=== PATIENT | male | born 1950 | race Caucasian/White ===

== ENCOUNTER 2017-12-06 09:00 | Inpatient (IN) | payer OTHER ==
--- NOTE | 2017-12-06 09:10 | EDPHY ---
H & P Stated Complaint: Pt states poss TIA yesterday; had blurry vision R, numb L leg; sxs resolved Time Seen by Provider: 12/06/17 09:10 - Personal History Current Tetanus Diphtheria and Acellular Pertussis (TDAP): Yes - Medical/Surgical History Other PMH: HTN - Social History Smoking Status: Never smoked Constitutional: Initial Vital Signs Temperature (C) 36.4 C 12/06/17 09:00 Heart Rate 69 12/06/17 09:00 Respiratory Rate 18 12/06/17 09:00 Blood Pressure 153/80 H 12/06/17 09:00 O2 Sat (%) 97 12/06/17 09:00 O2 Delivery Mode Room Air Allergies/Adverse Reactions: No Known Allergies Allergy (Unverified 12/06/17 09:07) Home Medications: Medication Instructions Recorded Albuterol [Proventil Inhaler HFA 1 - 2 puffs IH DAILY PRN 12/06/17 (*)] Herbals/Supplements -Info Only 1 ea PO DAILY 12/06/17 Hydrocortisone 1% [Hydrocortisone 1 hoda TP DAILY PRN 12/06/17 1% cream (*)] Lisinopril [Zestril 10 mg (*)] 10 mg PO 12/06/17 Medical Decision Making - Diagnostics Imaging Results: Imaging Impressions Head CT 12/06/17 09:25 Impression: 1. No significant intracranial abnormality seen. Subsequent CT angiogram was performed as requested. Findings discussed with Americo Garcia MD at 11:10 hour, 12/06/2017. Head CTA 12/06/17 09:25 Impression: 1. Mild to moderate narrowing at the right carotid bulb secondary to partially calcified plaque in the order of 50-60%. 2. Minimal noncalcified plaque at the left carotid bulb without significant stenosis. 3. Normal CT angiogram of the [place] band of [place], with normal variation as detailed above. Note: All calculations were performed using NASCET criteria. Findings discussed with Americo Garcia MD at 11:18 hour, 12/06/2017. Neck CTA 12/06/17 09:25 Impression: 1. Mild to moderate narrowing at the right carotid bulb secondary to partially calcified plaque in the order of 50-60%. 2. Minimal noncalcified plaque at the left carotid bulb without significant stenosis. 3. Normal CT angiogram of the [place] band of [place], with normal variation as detailed above. Note: All calculations were performed using NASCET criteria. Findings discussed with Americo Garcia MD at 11:18 hour, 12/06/2017. Imaging: Discussed imaging studies w/ call box wirer Radiologist, I viewed and interpreted images myself ED Course/Re-evaluation: CHIEF COMPLAINT: Left leg weakness, right eye blurriness HISTORY OF PRESENT ILLNESS: The patient is a 67 y/o male with a history of hypertension complaining of left leg weakness and right eye blurriness onset at 20:00, 13 hours ago, while lying in bed. Last night his left leg felt discoordinated, but the weakness and coordination has improved. The blurriness in his right eye has also improved, but he does have an intermittent semi-bad river band obstructing his vision. Takes Lisinopril, but didn't take for 1 week recently. No upper extremity weakness, difficulty with speech, headache, shortness of breath, chest pain, abdominal pain. REVIEW OF SYSTEMS: A 10 point review of systems was performed and is negative with the exception of the elements mentioned in the history of present illness. PHYSICAL EXAM: HR, BP, O2 Sat, RR. Temp noted General Appearance: Alert, well hydrated, appropriate, and non-toxic appearing. Head: Atraumatic without scalp tenderness or obvious injury Eyes: Pupils equal, round, reactive to light and accommodation, EOMI, no trauma , no injection. Ears: Clear bilaterally, no perforation, normal landmarks Nose: Atraumatic, no rhinorrhea, clear. Throat: Mucus membranes moist. Neck: Supple, nontender, no lymphadenopathy. Respiratory: No retractions, no distress, no wheezes, and no accessory muscle use. Lungs are clear to auscultation bilaterally. Cardiovascular: Regular rate and rhythm, no murmurs, rubs, or gallops. Good capillary refill all extremities. Gastrointestinal: Abdomen is soft, nontender, non-distended, no masses, no rebound, no guarding, no peritoneal signs. Musculoskeletal: Normal active ROM of all extremities, atraumatic. Neurological: Alert, appropriate, and interactive. The patient has normal DTRs and non-focal cranial nerves, motor, sensory, and cerebellar exam. Skin: No rashes, good turgor, no nodules on palpation. Past medical history: Hypertension Past surgical history: Denies Family history: Denies Social history: at bedside, lives in [place], employed at DIAGNOSTICS/PROCEDURES/CRITICAL CARE TIME: The 12 lead EKG was interpreted by myself as sinus rhythm with a rate of 71. See hard copy and/or "tracemaster" electronic copy for interpretation. Head CT w/o contrast: Negative Head and Neck CTA: 50-60% right carotid bulb stenosis Brain MRI w/o contrast: 1cm infarct of the right frontal lobe in the precentral gyrus Critical care time spent by me, Dr. Garcia, exclusively with this patient was 30 minutes, exclusive of PA time and exclusive of procedures. The organ system at risk was the brain and I had multiple imaging studies and admitted the patient for CVA observation to prevent worsening of the patients condition. DIFFERENTIAL DIAGNOSIS: The differential diagnosis for the patient's neurologic deficits included but was not limited to peripheral causes, central causes including CVA, TIA, electrolyte abnormalities and dehydration, cardiogenic causes, atypical causes like migraine syndrome. MEDICAL DECISION MAKING: The patient is a 67 y/o male with a history of hypertension complaining of left leg weakness and right eye blurriness onset at 20:00, 13 hours ago. His symptoms have since improved and he has a normal neuro exam. His NIH Stroke scale is 0. EKG, head CT w/o contrast, head and neck CTA, and labs ordered. 10mg IV Labetalol administered. 0947: The 12 lead EKG was interpreted by myself as sinus rhythm with a rate of 71. 0959: Patient was not given Labetalol as his blood pressure decreased to 148/23 without intervention. 1004: Patient's labs are normal and do not reveal signs of a stroke. 1110: Spoke with Dr. Romero, radiologist, patient's head CT w/o contrast is normal. CTA's pending. 1116: Spoke with Dr. Romero, radiologist, CTA's reveal 50-60% right carotid bulb stenosis. 1135: I viewed this patient while he was walking to the bathroom. He is currently walking with a limp of his left leg. 1137: Patient will need to be admitted for a CVA work up. He is out of the TPA window and does not meet criteria for large vessel intervention. Had he arrived last night in the TPA window, I would have used TPA as he would have been a candidate based on his symptoms and imaging findings. Brain MRI w/o contrast ordered. 80mg Lovenox administered. 1138: Consulted with hospitalist service, Dr. Tran accepts admission of this patient. 1144: Reassessed patient and discussed CTA and laboratory findings. I have also discussed plan for Brain MRI and admission, he is comfortable with this plan. 1233: Consulted with Dr. Carrero, regarding this patient. He will consult on this patient during his stay. 1239: Spoke with Dr. Pereyra, radiologist, regarding patient's brain MRI. There is a 1cm infarct of the right frontal lobe in the precentral gyrus. 1241: Reassessed patient and discussed MRI findings. - Data Points Laboratory Results: Laboratory Results 12/06/17 09:34 12/06/17 09:34 12/06/17 12/06/17 12/06/17 09:34 09:34 09:34 WBC 4.83 10^3/uL 10^3/uL (3.80-9.50) RBC 5.41 10^6/uL 10^6/uL (4.40-6.38) Hgb 17.3 g/dL g/dL (13.7-17.5) Hct 49.6 % % (40.0-51.0) MCV 91.7 fL fL (81.5-99.8) MCH 32.0 pg pg (27.9-34.1) MCHC 34.9 g/dL g/dL (32.4-36.7) RDW 13.0 % % (11.5-15.2) Plt Count 214 10^3/uL 10^3/uL (150-400) MPV 9.1 fL fL (8.7-11.7) Neut % (Auto) 69.2 % % (39.3-74.2) Lymph % (Auto) 18.4 % % (15.0-45.0) [place] % (Auto) 10.4 % % (4.5-13.0) Eos % (Auto) 1.2 % % (0.6-7.6) Baso % (Auto) 0.4 % % (0.3-1.7) Nucleat RBC Rel Count 0.0 % % (0.0-0.2) Absolute Neuts (auto) 3.34 10^3/uL 10^3/uL (1.70-6.50) Absolute Lymphs (auto) 0.89 10^3/uL L 10^3/uL (1.00-3.00) Absolute Monos (auto) 0.50 10^3/uL 10^3/uL (0.30-0.80) Absolute Eos (auto) 0.06 10^3/uL 10^3/uL (0.03-0.40) Absolute Basos (auto) 0.02 10^3/uL 10^3/uL (0.02-0.10) Absolute Nucleated RBC 0.00 10^3/uL 10^3/uL (0-0.01) Immature Gran % 0.4 % % (0.0-1.1) Immature Gran # 0.02 10^3/uL 10^3/uL (0.00-0.10) PT 13.7 SEC SEC (12.0-15.0) INR 1.03 (0.83-1.16) APTT 28.7 SEC SEC (23.0-38.0) Sodium 141 mEq/L mEq/L (135-145) Potassium 4.6 mEq/L mEq/L (3.5-5.2) Chloride 103 mEq/L mEq/L (97-110) Carbon Dioxide 26 mEq/l mEq/l (22-31) Anion Gap 12 mEq/L mEq/L (8-16) BUN 18 mg/dL mg/dL (7-23) Creatinine 1.1 mg/dL mg/dL (0.7-1.3) Estimated GFR > 60 Glucose 105 mg/dL H mg/dL (70-100) Calcium 8.9 mg/dL mg/dL (8.5-10.4) Troponin I < 0.012 ng/mL ng/mL (0.000-0.034) Departure - Departure Disposition: [facility] Inpatient Acute Clinical Impression: CVA (cerebral vascular accident) Qualifiers: CVA mechanism: stenosis Precerebral and cerebral artery: carotid artery Laterality of affected vessel: right Qualified Code(s): I63.231 - Cerebral infarction due to unspecified occlusion or stenosis of right carotid arteries Condition: Fair Referrals: Joann Arreaga MD [Primary Care Provider] - As per Instructions Report Scribed for: Americo Garcia Report Scribed by: Nuzhat Dempsey Date of Report: 12/06/17 Time of Report: 09:15
[2017-12-06] MEDS ORDERED: LABETALOL HCL 5 MG/ML 20 ML MDV IVP PRN (09:21)
[2017-12-06 09:38] LABS: PLATELET COUNT 214 10^3/uL (150-400)
[2017-12-06 09:45] LABS: INR 1.03 (0.83-1.16); PROTIME(PATIENT) 13.7 SEC (12.0-15.0)
--- NOTE | 2017-12-06 09:49 | CPEKG ---
Heart Rate: 71 RR Interval: 845 P-R Interval: 196 QRSD Interval: 90 QT Interval: 380 QTC Interval: 413 P [place]: 78 QRS [place]: 78 T Wave [place]: 47 EKG Severity - NORMAL ECG - EKG Impression: SINUS RHYTHM Electronically Signed By: Americo Garcia 06-Dec-2017 14:17:08
[2017-12-06] MEDS ORDERED: IOPAMIDOL (ISOVUE 370) 100 ML BTL IV ONE (10:04)
[2017-12-06] MEDS ORDERED: ENOXAPARIN 80 MG/0.8 ML SYR SC ONE ×2 (11:37→13:30)
[2017-12-06] MEDS ORDERED: ONDANSETRON DISINTEGRATING 4 MG TAB PO PRN (13:41)
[2017-12-06] MEDS ORDERED: ONDANSETRON 4 MG/2 ML VIAL IVP PRN (13:41)
[2017-12-06] MEDS ORDERED: ACETAMINOPHEN 325 MG TAB PO PRN (13:41)
[2017-12-06] MEDS ORDERED: ALBUTEROL 60 PUFFS/8 GM MDI IH PRN (13:45)
[2017-12-06] MEDS ORDERED: HYDROCORTISONE 1% CREAM TP PRN (13:45)
[2017-12-06] MEDS ORDERED: D5W 1/2 NS 1,000 ML IV SCH (13:45)
--- NOTE | 2017-12-06 14:48 | PDGENHP ---
History and Physical - Chief Complaint Acute paresis - History of Present Illness Primary care provider: Dr. Arreaga Primary dynamicist: Dr. Guzman HPI: 67-year-old male presenting with acute paresis located in the left lower extremity with associated blurred vision characterized as right ocular blurred visual field with semi circular visual crescent with onset of ocular symptoms on the afternoon of December 05 and the onset of lower extremity symptoms at 8: 00 p.m. On December 05. Duration of the paresis was persistent overnight and the patient noted that it was ongoing on the morning of this presentation. He characterizes the paresis as impaired proprioception, resulting in difficulty ambulating. He reports that he also experienced some concomitant dizziness exacerbated by standing. He reports that he has experienced this semi circular crescent visual field abnormality several times over the past year, and has noted for several years, without any workup in the past. It is never been associated with any other neurologic symptoms. He reports that is exacerbated with IV movements. He otherwise denies any infectious symptoms. He reports that he stopped taking his home dosage of lisinopril approximately 1 week ago after running out of his medication, and does not take any anti-platelet medications. History Information - Allergies/Home Medication List Allergies/Adverse Reactions: No Known Allergies Allergy (Unverified 12/06/17 09:07) Home Medications: Albuterol [Proventil Inhaler HFA (*)] 1 - 2 puffs IH DAILY PRN 12/06/17 [Last Taken Unknown] Herbals/Supplements -Info Only 1 ea PO DAILY 12/06/17 [Last Taken Unknown] Hydrocortisone 1% [Hydrocortisone 1% cream (*)] 1 hoda TP DAILY PRN 12/06/17 [ Last Taken Unknown] Lisinopril [Zestril 10 mg (*)] 15 mg PO DAILY 12/06/17 [Last Taken Unknown] I have personally reviewed and updated: family history, medical history, social history, surgical history - Past Medical History Additional medical history: Lumbar disc herniation. Nephrolithiasis - Surgical History Additional surgical history: C3-C4 fusion - Family History Additional family history: Mother with TIAs around age 100 - Social History Smoking Status: Never smoked Alcohol Use: Occasionally (Drinks 1 glass of wine nightly) Drug Use: None Additional social history: Physically active, exercises cardiovascularly several times weekly, has not noted any recent anginal symptoms or reduction in exercise tolerance Review of Systems Review of Systems: ROS: 10pt was reviewed & negative except for what was stated in HPI & below EENMT: Reports: blurred vision Neurological: Reports: weakness (Left lower extremity) Physical Exam Physical Exam: Temp Pulse Resp BP Pulse Ox 37.0 C 77 21 H 138/80 H 93 12/06/17 14:00 12/06/17 14:00 12/06/17 14:00 12/06/17 14:00 12/06/17 14:00 Constitutional: no apparent distress, appears nourished, not in pain Eyes: PERRL, anicteric sclera, EOMI Ears, Nose, Mouth, Throat: moist mucous membranes, hearing normal, ears appear normal, no oral mucosal ulcers Cardiovascular: regular rate and rhythym, no murmur, rub, or gallop, No edema Respiratory: no respiratory distress, no rales or rhonchi, clear to auscultation Gastrointestinal: normoactive bowel sounds, soft, non-tender abdomen, no palpable masses Skin: warm, No abrasion, No rash Neurologic: AAOx3, sensation intact bilaterally, other (Bilateral patellar reflexes 2+, left heel to stuart demonstrating some proprioceptive abnormality), No weakness (Motor strength 5/5 bilateral upper and lower extremities) Psychiatric: interacting appropriately, not anxious, not encephalopathic, thought process linear Lab Data & Imaging Review 12/06/17 09:34 12/06/17 09:34 WBC 4.83 10^3/uL (3.80-9.50) 12/06/17 09:34 RBC 5.41 10^6/uL (4.40-6.38) 12/06/17 09:34 Hgb 17.3 g/dL (13.7-17.5) 12/06/17 09:34 Hct 49.6 % (40.0-51.0) 12/06/17 09:34 MCV 91.7 fL (81.5-99.8) 12/06/17 09:34 MCH 32.0 pg (27.9-34.1) 12/06/17 09:34 MCHC 34.9 g/dL (32.4-36.7) 12/06/17 09:34 RDW 13.0 % (11.5-15.2) 12/06/17 09:34 Plt Count 214 10^3/uL (150-400) 12/06/17 09:34 MPV 9.1 fL (8.7-11.7) 12/06/17 09:34 Neut % (Auto) 69.2 % (39.3-74.2) 12/06/17 09:34 Lymph % (Auto) 18.4 % (15.0-45.0) 12/06/17 09:34 [place] % (Auto) 10.4 % (4.5-13.0) 12/06/17 09:34 Eos % (Auto) 1.2 % (0.6-7.6) 12/06/17 09:34 Baso % (Auto) 0.4 % (0.3-1.7) 12/06/17 09:34 Nucleat RBC Rel Count 0.0 % (0.0-0.2) 12/06/17 09:34 Absolute Neuts (auto) 3.34 10^3/uL (1.70-6.50) 12/06/17 09:34 Absolute Lymphs (auto) 0.89 10^3/uL (1.00-3.00) L 12/06/17 09:34 Absolute Monos (auto) 0.50 10^3/uL (0.30-0.80) 12/06/17 09:34 Absolute Eos (auto) 0.06 10^3/uL (0.03-0.40) 12/06/17 09:34 Absolute Basos (auto) 0.02 10^3/uL (0.02-0.10) 12/06/17 09:34 Absolute Nucleated RBC 0.00 10^3/uL (0-0.01) 12/06/17 09:34 Immature Gran % 0.4 % (0.0-1.1) 12/06/17 09:34 Immature Gran # 0.02 10^3/uL (0.00-0.10) 12/06/17 09:34 PT 13.7 SEC (12.0-15.0) 12/06/17 09:34 INR 1.03 (0.83-1.16) 12/06/17:34 APTT 28.7 SEC (23.0-38.0) 12/06/17 09:34 Sodium 141 mEq/L (135-145) 12/06/17 09:34 Potassium 4.6 mEq/L (3.5-5.2) 12/06/17 09:34 Chloride 103 mEq/L (97-110) 12/06/17 09:34 Carbon Dioxide 26 mEq/l (22-31) 12/06/17 09:34 Anion Gap 12 mEq/L (8-16) 12/06/17 09:34 BUN 18 mg/dL (7-23) 12/06/17 09:34 Creatinine 1.1 mg/dL (0.7-1.3) 12/06/17 09:34 Estimated GFR > 60 12/06/17 09:34 Glucose 105 mg/dL (70-100) H 12/06/17 09:34 Calcium 8.9 mg/dL (8.5-10.4) 12/06/17 09:34 Troponin I < 0.012 ng/mL (0.000-0.034) 12/06/17 09:34 Visualized and Interpreted EKG results: Yes EKG Interpretation: Positive for: other (Normal sinus mechanism) Assessment & Plan Assessment: 67-year-old male presents with acute CVA Plan: 1. CVA. Acute, new problem this provider, further workup indicated. Right frontal, 1 cm without any hemorrhage on MRI, possibly associated with right- sided 50-60% stenosis in the carotid bulb, and resultant left lower extremity proprioceptive symptoms -check hemoglobin A1c -monitor on telemetry for provoking arrhythmia -get echocardiogram with bubble study -the patient has received therapeutic Lovenox in the emergency department, will hold on further anticoagulation and consult with Neurology to determine whether anti-platelet medication would be indicated over systemic anticoagulation -reviewed outside records including 12/01/[address] Arreaga demonstrating an LDL of 118, goal is currently 70 -counseled the patient that the use of statin in this situation will both lower his LDL as well as improve his 30 day mortality risk the patient is amenable to initiating statin at this time -stroke order set and therapy modalities ordered 2. Carotid stenosis. New diagnosis, right-sided with 50-60% stenosis at the bulb, minimal disease on the left, patient's degree of stenosis is yet to be at the level of surgical intervention but will require regular outpatient monitoring Diet. Passed swallow eval, cardiac Prophylaxis. High risk patient, SCDs until seen by neurology Code. Full Disposition. Anticipated discharge is 12/06 versus 12/07, pending further workup as outlined above. I have discussed patient's presentation with Susan Snyder, hospitalist provider, she has signed out the patient to me for evaluation.
--- NOTE | 2017-12-06 14:55 | ECHO ---
[email or web address] [address] [address] Main: [phone] Fax: Transthoracic Echocardiogram Name: ELMA GUERRERO MR#: [id number] Study Date: 12/06/2017 Study Time: 02:09 PM Date of : 1950 Age: 67 year(s) Height: 175.3 cm (69 in.) Weight: 74.84 kg (165 lb.) BSA: 1.9 m2 Gender: Male Examination: Echo with Agitated Saline Indication: Ischemic Stroke, Bubble exam Image Quality: Contrast: Requested by: Ronaldo Tran BP: 138 mmHg/80 mmHg Heart Rate: Rhythm: Normal sinus rhythm Indication: Ischemic Stroke, Bubble exam Procedure Staff Director Pharmacovigilance: Jerry Hand RDCS Reading Physician: Nicholas Salguero MD Requesting Provider: Conclusions: Normal size left ventricle. Normal global systolic LV function. EF is 68 %. The left atrium is normal in size. An agitated saline study was performed and was negative for intracardiac shunting. The right atrium is normal in size. Measurements: Chambers Valvular Assessment AV/MV Valvular Assessment TV/PV Normal Normal Normal Name Value Range Name Value Range Name Value Range Ao Karolyn (MM): 2.6 cm (2.2 cm-3.7 AV Vmax: 1.24 m/s (1 m/s-1.7 cm) m/s) IVSd (2D): 1.0 cm (0.6 cm-1.1 AV maxP mmHg ( - ) cm) LVOT Vmax: 0.65 m/s (0.7 m/s-1.1 LVDd (2D): 4.2 cm (4.2 cm-5.9 m/s) cm) MV E Vmax: 0.61 m/s ( - ) LVDs (2D): 2.6 cm (2.1 cm-4 MV A Vmax: 0.50 m/s ( - ) cm) MV E/A: 1.22 ( - ) LVPWd (2D): 1.0 cm (0.6 cm-1 cm) LVEF (2D): 68 (>=54 %) Continued Measurements: Valvular Assessment AV/MV Name Value MV E' Septal: 0.08 m/s MV E/E' Septal: 7.80 MV E/E' Lateral: 7.00 Patient: ELMA GUERRERO Study Date: 12/06/2017 Page 1 of 2 02:09 PM Findings: Left Ventricle: Normal size left ventricle. No LV hypertrophy. Normal global systolic LV function. EF is 68 %. No regional wall motion abnormality. Diastolic dysfunction is present. . Right Ventricle: Normal size right ventricle. Normal RV function. Left Atrium: The left atrium is normal in size. An agitated saline study was performed and was negative for intracardiac shunting. Right Atrium: The right atrium is normal in size. Mitral Valve: The mitral valve is normal in appearance and function. There is no mitral valve regurgitation. Aortic Valve: The aortic valve is tri-leaflet and functions normally. Tricuspid Valve: The tricuspid valve is normal in appearance and function. Pulmonic Valve: The pulmonic valve is normal in appearance and function. Aorta: The aorta is normal. Pericardium: No pericardial effusion. (No Signature Object) Patient: ELMA GUERRERO Study Date: 12/06/2017 Page 2 of 2 02:09 PM [id number]
--- NOTE | 2017-12-06 18:13 | GCON ---
[f rep st] CONSULTATION NEUROLOGY CONSULTATION DATE OF CONSULTATION: 12/06/2017 REFERRING PHYSICIAN: Ronaldo Tran MD CHIEF COMPLAINT: Stroke. HISTORY OF PRESENT ILLNESS: The patient is a very pleasant and healthy 67-year- old gentleman with a past medical history of hypertension, on lisinopril 10 mg daily. He is very active and was skiing hard for the last 2 days in [place] and [facility]. He does have some remote history of very rare migraine aura at times symptoms without headaches. Yesterday, he did have a migraine aura type symptom in the afternoon of a scintillating scotoma around 1 p.m. which resolved. Then later in the afternoon around 4 or 5 he had sudden blurriness of the right eye. Then around 8 p.m. while relaxing, he suddenly had acute onset weakness of the left leg. He essentially did not seek treatment for this and went to bed, and then this morning as he continued to have left leg weakness he came to the ER around 13 hours after symptom onset. He had CTA of the head and neck along with noncontrast head CT. Noncontrast head CT was negative. Angio of the head showed 50% to 60% narrowing of the carotid bulb which is partially calcified. No significant stenosis at the left carotid bulb. [place] of [place] was negative. MRI of brain confirmed a small right frontal precentral gyrus 1 cm acute infarct on diffusion-weighted images. He has had no atrial fibrillation on telemetry that I am aware of. The patient's echo cardiogram shows normal left atrial size, 68% EF. Negative for shunting. No intracardiac thrombus. For past medical history, social history, family history, home medications, see Dr. Tran's H and P. PHYSICAL EXAMINATION: VITAL SIGNS: Blood pressure 127/77, temperature 37.0, heart rate 80s-regular, respirations 16. GENERAL: In no acute distress, very pleasant. NEUROLOGIC: Higher mental function: Awake and alert. No aphasia. Cranial nerve exam: He has some mild left facial weakness in an upper motor neuron distribution. Otherwise, normal cranial nerve exam. On motor exam, he does have some mild left hemiparesis in the left arm and leg as well. IMPRESSION/PLAN: 1. Stroke. 2. Right carotid disease. Overall, his clinical history is consistent with a small right frontal infarct from probable embolism from his right carotid artery atherosclerotic disease. His history suggests initial small embolism to his right ophthalmic artery and then further distal embolism to his right frontal lobe. I have spoken to his primary hospitalist, Dr. Tran. I recommend we consult with Dr. Sparks from general surgery to evaluate for carotid endarterectomy. Depending on Dr. Sparks' s evaluation and treatment recommendations, we can decide on antithrombotic therapy. If Dr. Sparks recommends surgery in the near future, we can hold off on starting antiplatelets. If he recommends delayed surgery, then I would recommend aspirin 81 mg daily, plus Plavix 75 mg daily until surgery. I also recommend continued antihypertensives along with high-dose statin therapy. We discussed potential risks, benefits, and alternatives of all of these medication adjustments. He should also follow up with outpatient cardiology for baseline stress testing and ECG monitoring along with his primary care. I will also see him as an outpatient as well. We will follow up on the above. Thank you for this consultation. seventy total minutes of floor time reviewing the patient's clinical history, extensive imaging, MRI imaging, and counseling with the patient along with coordination and care. /[id number]/MODL MTDD
[2017-12-06 19:52] VITALS: RESP 16
[2017-12-06] MEDS: ATORVASTATIN CALCIUM 40 MG TAB PO SCH (20:25)
--- NOTE | 2017-12-06 22:06 | SOAPPROG ---
ANNETTE Progress Note Assessment/Plan: Assessment: 67-YEAR-OLD MALE WITH SMALL CVA YESTERDAY AND CAME TO THE HOSPITAL TODAY WITH SOME LEFT LEG WEAKNESS AND COMPLAINTS OF RIGHT EYE BLURRINESS CAROTID CTA REVEALS A 60% STENOTIC PLAQUE WITH CALCIFICATION ON THE RIGHT AND A LESS THAN 40% STENOSIS ON THE LEFT MRI OF THE BRAIN REVEALS A 1 CM NEW CVA HEENT NORMOCEPHALIC, NONICTERIC, PERRLA, NO ORAL LESIONS, FAINT RIGHT BRUIT CHEST CLEAR COR REGULAR RHYTHM WITHOUT MURMURS ABDOMEN SOFT EXTREMITIES FULL RANGE OF MOTION FULL PULSES NEUROLOGIC REVEALS MILD WEAKNESS OF THE LEFT LEG AND LEFT ARM AND A MILD LEFT FACIAL DROOP WHICH APPARENTLY HAVE BEEN STEADILY IMPROVED/CRANIAL NERVES INTACT PSYCH REVEALS HIM TO BE ORIENTED ALERT COOPERATIVE IMPRESSION: SMALL EMBOLIC STROKE THE RIGHT FRONTAL LOBE WITH IMPROVING NEUROLOGIC SYMPTOMS Plan: WOULD RECOMMEND IMMEDIATE TREATMENT WITH THE ANTI-PLATELET THERAPY AND THEN RIGHT CAROTID ENDARTERECTOMY THE PATIENT STABILIZES APPROXIMATELY IN 10- 14 DAYS FROM NOW. RISKS AND OPTIONS BEEN FULLY DISCUSSED THE PATIENT AND HE WISHES TO PROCEED IN THAT MANNER. WE DISCUSSED THE SLIGHT INCREASE RISK OF INTERCEREBRAL BLEEDING FROM A MORE IMMEDIATE CAROTID ENDARTERECTOMY IN THE FACE OF A TRUE INFARCT. WILL REASSESS HIS NEUROLOGIC STATUS IN THE MORNING 12/06/17 22:00 Objective: Vital Signs Temp Pulse Resp BP Pulse Ox 37.1 C 72 16 118/72 94 12/06/17 19:50 12/06/17 19:50 12/06/17 19:50 12/06/17 19:50 12/06/17 19:50 PT 13.7 SEC (12.0-15.0) 12/06/17 09:34 INR 1.03 (0.83-1.16) 12/06/17 09:34 ICD10 Worksheet Patient Problems: Problems Problem Status Onset CVA (cerebral vascular accident) Acute
[2017-12-07 04:06] VITALS: O2SAT 94
[2017-12-07 07:52] VITALS: BP 114/64; PULSE 69; TEMP 97.7
--- NOTE | 2017-12-07 08:12 | PDMN ---
Medical Necessity Medical necessity: M85 stroke: ischemic 2 days- acute stroke: carotid stenosis req. surgical intervention,
[2017-12-07] MEDS: ATORVASTATIN CALCIUM 40 MG TAB PO SCH (08:37)
[2017-12-07] MEDS ORDERED: Herbals/Supplements -Info Only PO SCH (09:00)
[2017-12-07] MEDS ORDERED: LISINOPRIL 10 MG TAB PO SCH (09:00)
--- NOTE | 2017-12-07 09:56 | ASMTCMCOM ---
CM Note CM Note Notes: Reviewed chart and discussed w/RN. Pt cleared by PT to dc home w/no PT needs at this time. Pt will dc home w/ w/no CM needs. He will return for CEA surg in 10-14 days. Date Signed: 12/07/2017 09:55 AM Electronically Signed By:Devora Diamond RN
--- NOTE | 2017-12-07 10:07 | NEUROPROG ---
Assessment: 1. Small right frontal infarct 2. Right carotid artery disease I appreciate Dr. Sparks input. I appreciate Hospital Medicine management. 35 total minutes floor time; including reviewing interim history, surgery recommendations and coordination of care. Patient is had no further symptoms. He has had further improvement of left- sided weakness. Surgery recommends carotid endarterectomy on the right in 10-14 days. He will be discharged home today on aspirin and Plavix, statin therapy and blood pressure medication. We discussed potential risks, benefits and alternatives of these medications. We did speak with surgery as well and they are okay with both aspirin and Plavix. I will see him next week and manage anti thrombotics preoperatively. We will plan on seeing him in 8 weeks for reassessment. He will need ongoing carotid surveillance which can be done with general surgery. To monitor the left carotid over time. I also recommend outpatient follow-up with PCP and Cardiology for stress testing in ECG monitoring. He is agreeable. Will sign off and follow up as needed. Please do not hesitate to call for any changes in neurologic status with this pleasant patient or questions. Thank for the consultation. Subjective: No new symptoms Objective: Vital Signs Temp Pulse Resp BP Pulse Ox 36.5 C 69 16 114/64 94 12/07/17 07:51 12/07/17 07:51 12/07/17 07:51 12/07/17 08:38 12/07/17 07:51 12/06/17 12/07/17 12/08/17 05:59 05:59 05:59 Intake Total 400 250 Balance 400 250 PT 13.7 SEC (12.0-15.0) 12/06/17 09:34 INR 1.03 (0.83-1.16) 12/06/17 09:34 Awake and alert No aphasia No weakness in the upper lower extremities Allergies/Adverse Reactions: No Known Allergies Allergy (Unverified 12/06/17 09:07)
--- NOTE | 2017-12-07 10:20 | GDS ---
[f rep st] DISCHARGE SUMMARY DISCHARGE DIAGNOSES: 1. Acute cerebrovascular accident consistent with a small right frontal infarct. 2. Right carotid artery stenosis. 3. History of hypertension. CONSULTANTS: 1. Dr. Arpit Sparks, General Surgery. 2. Dr. Kayode Carrero, Neurology. HOSPITAL COURSE: Acute CVA: The patient presented to the hospital with acute left lower extremity w eakness and blurred vision. A CTA of the head and neck along with a noncontrast head CT was done. T he angio of the head showed a 50% to 60% narrowing of the carotid bulb which was partially calcified. He was seen by Neurology who did not deem him to be a candidate for tPA since he was 13 hours out f rom onset of his symptoms. He was started on aspirin and Plavix. He was also started on high-dose s tatin. On day of discharge, the patient's weakness has improved. I have discussed the case with Jayashree daly from Dr. Sparks' office as well as with Dr. Carrero. The plan is for him to be discharged today on aspi rin and Plavix, and high-dose Lipitor. The patient verbalizes understanding to these instructions an d plans to follow up with Dr. Sparks next week. PHYSICAL EXAMINATION: VITAL SIGNS: On day of discharge, blood pressure 114/64, pulse 69, respirator y rate 16, O2 saturation 94% on room air. Temperature afebrile. GENERAL: No acute distress. Face is symmetric. There is no pronator drift. DIAGNOSTICS DONE THIS HOSPITAL STAY: CT angio of the head and neck done 12/06/2017, refer to report. Brain MRI done 12/06/2017, refer to report. Echocardiogram done 12/06/2017, refer to report. DISCHARGE MEDICATIONS: Please refer to discharge medication reconciliation in [facility] for details. Below is a preliminary list. New medications on hospital discharge: 1. Lipitor 80 mg daily. 2. Aspirin 81 mg daily. 3. Plavix 75 mg daily. Home medications to be continued: Zestril 15 mg daily. All other home medications were continued as usual home dosages. DISCHARGE INSTRUCTIONS: The patient will be discharged from the hospital where he should follow up w kiki Sparks next week as well as Dr. Carrero as directed. Dr. Carrero has also recommended outpatient card iology visit to evaluate for coronary artery disease given his atherosclerotic disease found in his n neyda. TIME SPENT: Greater than 30 minutes was spent on the discharge of this patient. /[id number]/MODL
--- NOTE | 2017-12-09 21:51 | GCON ---
[f rep st] CONSULTATION HISTORY OF PRESENT ILLNESS: The patient is a 67-year-old male who presented with weakness in his lef t leg, and was found to have a small frontal lobe acute stroke. He has recovered significantly, but still not 100%. MRI of the brain showed a small 1 cm infarct area. CTA of the neck reveals a 60% in ternal carotid artery stenosis with calcified plaque. He does have a history of hypertension, for wh ich he takes lisinopril as well. ALLERGIES: None. MEDICATIONS: Albuterol, lisinopril, hydrocortisone cream. REVIEW OF SYSTEMS: A full 10-point review of systems. Specifically, he does not smoke. PAST MEDICAL HISTORY: Lumbar disk herniation, kidney stones, C3-4 neck fusion. FAMILY HISTORY: Noncontributory. PHYSICAL EXAMINATION: GENERAL: An alert, cooperative, 67-year-old male in no acute distress. HEAD AND NECK: A faint right carotid bruit. No adenopathy. No icterus. Pupils are normal. Question of a very faint left facial droop. NECK: Supple and nontender. CHEST: Clear. CARDIAC: Regular rhy thm without murmurs. ABDOMEN: Soft. EXTREMITIES: Benign. Full range of motion. Full pulses. NE UROLOGIC: Minimal weakness of his left leg. NEURO: Cranial nerves are in intact. Sensory exam is intact and symmetric. IMPRESSION: Critical right carotid stenosis with right cerebrovascular accident. RECOMMENDATIONS: Carotid endarterectomy after the patient is stabilized. I would recommend waiting 2 weeks for surgery since he has a definite defect on his MRI. I would recommend Plavix and Lipitor in the interim, as well as a baby aspirin. Certainly surgery sooner if he has repeating worsening sy mptoms. However, at this point, he seems quite stable, and I think it is safer to allow him to heal up his frontal lobe injury prior to endarterectomy. Risks and options have been fully discussed with the patient, and he wishes to proceed. /[id number]/MODL
== END 2017-12-07 11:13 | disposition home or self-care (01) | DRG 65 ==
LOC: OBSVTOIN 12:04 → F3N 13:48
PROVIDERS: ADMIT Internal Medicine; ATTEND Family Medicine
DX: I63.9 Cerebral infarction, unspecified (principal); G81.94 Hemiplegia, unspecified affecting left nondominant side; R29.810 Facial weakness; I65.21 Occlusion and stenosis of right carotid artery; I10 Essential (primary) hypertension; R29.700 NIHSS score 0; Z98.1 Arthrodesis status; Z87.442 Personal history of urinary calculi
CPT/HCPCS: 97161-GP; G8978-GP-CI; G8979-GP-CI; G8980-GP-CI; J1650; Q9967

== ENCOUNTER 2017-12-19 09:24 | Inpatient (IN) | payer OTHER ==
[2017-12-19] MEDS ORDERED: ceFAZolin 2 GM/SWFI 2 GM/20 ML SYR IVP ONE (09:30)
[2017-12-19] MEDS ORDERED: LIDOCAINE 1% 2 ML INJ ID PRN (09:31)
[2017-12-19] MEDS ORDERED: LR 1,000 ML IV ONE (09:31)
--- NOTE | 2017-12-19 09:54 | PDHPUP ---
History & Physical Update H&P update statement: This history and physical update is based on an assessment of the patient which was completed after admission or registration (within 24 hours), but prior to the surgery/procedure. H&P update: H&P reviewed & patient examined, no change in patient's condition since H&P completed
[2017-12-19] MEDS ORDERED: MIDAZOLAM 2 MG/2 ML VIAL IVP ONE ×2 (10:13→10:30)
--- NOTE | 2017-12-19 10:13 | PDANEPAE ---
ANE History of Present Illness 67 yo for cea ANE Past Medical History - Cardiovascular History Hx Hypertension: Yes Hx Arrhythmias: No Hx Chest Pain: No Hx Coronary Artery / Peripheral Vascular Disease: No Hx CHF / Valvular Disease: No Hx Palpitations: No Cardiovascular History Comment: R carotid artery stenosis - Pulmonary History Hx COPD: No Hx Asthma/Reactive Airway Disease: No Hx Recent Upper Respiratory Infection: No Hx Oxygen in Use at Home: No Hx Sleep Apnea: No Sleep Apnea Screening Result - Last Documented: Negative - Neurologic History Hx Cerebrovascular Accident: Yes Hx Seizures: No Hx Dementia: No Neurologic History Comment: CVA 3-20-18 L leg weakness, possible blurred vision - Endocrine History Hx Diabetes: No - Renal History Hx Renal Disorders: Yes Renal History Comment: BPH - Liver History Hx Hepatic Disorders: No - Neurological & Psychiatric Hx Hx Neurological and Psychiatric Disorders: No - Cancer History Hx Cancer: No - Congenital Disorder History Hx Congenital Disorders: No - GI History Hx Gastrointestinal Disorders: Yes Gastrointestinal History Comment: hemorrhoids - well managed - Other Health History Other Health History: none - Chronic Pain History Chronic Pain: No - Surgical History Prior Surgeries: C3/C4 fusion ANE Review of Systems Review of Systems: - Exercise capacity METS (RN): 6 METS ANE Patient History - Allergies Allergies/Adverse Reactions: No Known Allergies Allergy (Verified 12/18/17 11:54) - Home Medications Home medications: home medication list seen and reviewed Home Medications: Albuterol [Proventil Inhaler HFA (*)] 1 - 2 puffs IH DAILY PRN 12/06/17 [Last Taken Unknown] Herbals/Supplements -Info Only 1 ea PO DAILY 12/06/17 [Last Taken 12/18/17] Hydrocortisone 1% [Hydrocortisone 1% cream (*)] 1 hoda TP DAILY PRN 12/06/17 [ Last Taken 12/18/17] Lisinopril [Zestril 10 mg (*)] 15 mg PO DAILY 12/06/17 [Last Taken 12/18/17] Aspirin [Aspirin 81mg (*)] 81 mg PO DAILY 12/14/17 [Last Taken 12/18/17] - NPO status NPO Status: no food or drink >8 hours NPO Since - Liquids (Date): 12/18/17 NPO Since - Liquids (Time): 00:00 NPO Since - Solids (Date): 12/18/17 NPO Since - Solids (Time): 23:00 - Anes Hx Anes Hx: no prior problems - Smoking Hx Smoking Status: Never smoked ANE Labs/Vital Signs - Vital Signs Blood Pressure: 149/86 Heart Rate: 76 Respiratory Rate: 16 O2 Sat (%): 94 Height: 5 ft 9 in Weight: 73.936 kg ANE Physical Exam - Airway Mallampati Score: Class 2 Mouth exam: normal dental/mouth exam - Pulmonary Pulmonary: no respiratory distress - Cardiovascular Cardiovascular: regular rate and rhythym - ASA Status ASA Status: III ANE Anesthesia Plan Anesthesia Plan: general endotracheal anesthesia Lines/Monitors: arterial line
[2017-12-19] MEDS ORDERED: THROMBIN (BOVINE) 20,000 UNIT SPRAY TP ONE ×2 (10:18→10:29)
[2017-12-19] MEDS ORDERED: BACITRACIN ZINC 14.2 GM OINTTUBE TP ONE (10:18)
[2017-12-19] MEDS ORDERED: BUPIVACAINE 0.5% 30 ML SDV ONE (10:19)
[2017-12-19] MEDS ORDERED: PROTAMINE SULFATE 50 MG/5 ML VIAL IVP ONE (10:19)
[2017-12-19] MEDS ORDERED: HEPARIN 5,000 UNIT/0.5 ML SYR ONE (10:27)
[2017-12-19] MEDS ORDERED: fentaNYL 100 MCG/2 ML INJ ONE ×2 (10:32→13:10)
[2017-12-19] MEDS ORDERED: REMIFENTANIL HCL 1 MG VIAL ONE (10:32)
[2017-12-19] MEDS ORDERED: PROPOFOL/EMULSION 500 MG/50 ML BOTTLE IV ONE (10:33)
[2017-12-19] MEDS ORDERED: HYDROmorphONE/DILAUDID 1 MG/ML INJ IVP PRN ×2 (12:15→12:30)
[2017-12-19] MEDS ORDERED: ONDANSETRON 4 MG/2 ML VIAL IVP PRN ×2 (12:15→12:30)
[2017-12-19] MEDS ORDERED: NALOXONE HCL 0.4 MG/ML INJ IVP PRN (12:15)
--- NOTE | 2017-12-19 12:29 | POSTOPPROG ---
Post Op Note Date of Operation: 12/19/17 Surgeon: Arpit Sparks Stamping Die Maker Bench: Jayashree Gomez Anesthesiologist: Gen Alvarado Anesthesia: GET(General Endotracheal) Pre-op Diagnosis: hx CVA c R carotid stenosis Post-op Diagnosis: same, with ulcerated dissected plaque Procedure: R CEA c EEG monitoring c patch closure and shunt Findings: no changes on EEG, dissected ulcerated plaque Inf/Abcess present in the surg proc area at time of surgery?: No EBL: 50-100 Complications: none Specimen(s): plaque and cervical LN to pathology
[2017-12-19] MEDS ORDERED: OXYCODONE/APAP 5/325 TAB PO PRN (12:30)
[2017-12-19] MEDS ORDERED: ENALAPRILAT DIHYDRATE 1.25 MG/ML VIAL IVP PRN (12:30)
[2017-12-19] MEDS ORDERED: HYDROCORTISONE 1% CREAM TP PRN (12:31)
[2017-12-19] MEDS ORDERED: ALBUTEROL 60 PUFFS/8 GM MDI IH PRN (12:31)
--- NOTE | 2017-12-19 13:08 | POSTANESTH ---
Post Anesthetic Evaluation Cardiovascular Status: Normal, Stable Respiratory Status: Normal, Stable Level of Consciousness/Mental Status: Can Participate in Eval Pain Control: Adequate, Prn Tx Ordered Nausea/Vomiting Control: Adequate, Prn Tx Ordered Complications Possibly Related to Anesthesia: None Noted
[2017-12-19] MEDS: fentaNYL 100 MCG/2 ML INJ IVP PRN ×2 (13:18→13:23)
[2017-12-19] MEDS ORDERED: HYDROmorphone HCL/NS 0.5 MG/ML SYR IV PRN (13:33)
--- NOTE | 2017-12-19 15:49 | ASMTCMCOM ---
CM Note CM Note Notes: 67yr old male admitted for R carotid stenosis after recent CVA. Has a Hx of lumbar disc herniation, C3-4 fusion. Lives with his . Not anticipating patient will have discharge needs. Date Signed: 12/19/2017 03:48 PM Electronically Signed By:Lindsey Martinez LCSW
[2017-12-19] MEDS: NS W/ 20 KCl/L 1,000 ML IV SCH (16:50)
--- NOTE | 2017-12-19 19:47 | PDMN ---
Medical Necessity Medical necessity: Patient meets inpatient criteria per PA/MD notes and [facility] [place] S- 300 Carotid Endarterectomy - 1 day postop - ( CPT 81738 / Medicare inpatient- only surgery.)
[2017-12-19] MEDS: DOCUSATE SODIUM 100 MG CAP PO SCH (22:30)
[2017-12-20] MEDS: NS W/ 20 KCl/L 1,000 ML IV SCH (07:16)
[2017-12-20 08:04] VITALS: BP 131/72; PULSE 72; RESP 17; TEMP 98.8; O2SAT 98
--- NOTE | 2017-12-20 08:29 | SOAPPROG ---
SOAP Progress Note Assessment/Plan: Assessment/Plan: 67 Y M s/p CEA, hx CVA. POD#1. Doing well. BP stable. Wounds intact. Neuro grossly intact. D/c to home. S: minimal pain, no weakness O: alert, nad inc cdi, min swelling no bruits ctab rrr abd soft maex 4 tongue midline neuro grossly intact 12/20/17 08:28 Objective: Vital Signs Temp Pulse Resp BP Pulse Ox 37.1 C 72 17 131/72 H 98 12/20/17 07:51 12/20/17 07:51 12/20/17 07:51 12/20/17 07:51 12/20/17 07:51 Laboratory Results 12/20/17 04:25 12/20/17 04:25 12/19/17 12/20/17 12/21/17 05:59 05:59 05:59 Intake Total 4127 Output Total 1050 Balance 3077 ICD10 Worksheet Patient Problems: Problems Problem Status Onset CVA (cerebral vascular accident) Acute
[2017-12-20] MEDS ORDERED: CLOPIDOGREL BISULFATE 75 MG TAB PO SCH (09:00)
[2017-12-20] MEDS ORDERED: LISINOPRIL 10 MG TAB PO SCH (09:00)
[2017-12-20] MEDS ORDERED: ATORVASTATIN CALCIUM 40 MG TAB PO SCH (09:00)
[2017-12-20] MEDS ORDERED: ASPIRIN 81 MG CHEWABLE TAB PO SCH (09:00)
[2017-12-20] MEDS: DOCUSATE SODIUM 100 MG CAP PO SCH (09:11)
[2017-12-21] MEDS ORDERED: ENOXAPARIN 40 MG/0.4 ML SYR SC SCH (09:00)
--- NOTE | 2017-12-25 21:38 | GOP ---
[f rep st] OPERATIVE REPORT DATE OF OPERATION: 12/19/2017 SURGEON: Arpit Sparks MD LEAD FIRE PROTECTION ENGINEER: Jayashree Gomez, PAC. ANESTHESIA: Dr. Alvarado. PREOPERATIVE DIAGNOSIS: Critical right carotid stenosis, with history of cerebrovascular accident. POSTOPERATIVE DIAGNOSIS: Critical right carotid stenosis, with history of cerebrovascular accident. PROCEDURE PERFORMED: Right carotid endarterectomy with electroencephalogram monitoring and patch ward sure. Cervical lymph node biopsy. FINDINGS: The patient was found to have a 60% stenosis with a markedly ulcerated, dissected plaque. He had no EEG changes, and he awoke neurologically intact, moving all extremities. DESCRIPTION OF PROCEDURE: Patient was taken to the operating room, where he received satisfactory ge neral endotracheal anesthesia by Dr. Alvarado. He had been systemically heparinized prior to inducti on of anesthesia. He was prepped and draped in the usual sterile fashion, with continuous EEG monito ring and arterial line monitoring. A longitudinal incision was made along the anterior border of the sternocleidomastoid muscle, and dissection carried down through the platysma, subcutaneous tissue, a nd the superficial cervical fascia. The carotid arterial tree was dissected free, gaining control of the common carotid, external carotid, internal carotid arteries with vessel loops. This was accompl ished with division of the facial vein, which was multiply ligated with silk ties. A large-sized cer vical lymph node was also removed and sent to Pathology. The hypoglossal nerve was identified and mo bilized, allowing adequate exposure of the internal, external, and common carotid arteries. After ad equate control was obtained, the patient was given additional heparin. After adequate circulation ti me, the vessels were crossclamped with vessel loops. Arteriotomy was made in the common carotid marisol ry and extended up through the plaque into the internal carotid artery. There was good backflow from the internal carotid artery, but a shunt was placed anyway, and flow was established through the anuja nt in less than a minute's time. Endarterectomy then ensued, removing the ulcerated plaque. Good fe athered end was obtained, though that end was also tacked down with a 6-0 Prolene suture. A Dacron H emashield patch was placed over the arteriotomy site, and sutured in place with a running 7-0 Hemashi eld suture. The shunt was removed prior to completion of the suture line. All vessels were flushed. The suture line was completed, and flow was first established through the external carotid, and the n through the internal carotid. He had no EEG changes during this procedure, and vital signs remaine d stable. The suture line was hemostatic. Heparin was reversed with protamine. The wound was spray ed with some topical thrombin, and closed in layers using 3-0 Vicryl for the cervical fascia, 3-0 Ty ryl for the platysma and subcutaneous tissue, and 4-0 Monocryl subcuticular stitch for the skin. The superficial layers were infiltrated with 0.5% Marcaine. He tolerated the procedure well, taken to r ecovery room in good condition. /[id number]/MODL
== END 2017-12-20 09:50 | disposition home or self-care (01) | DRG 38 ==
LOC: F2W 09:24 → F2N 13:33
PROVIDERS: ADMIT Surgery; ATTEND Surgery
PROC: 03CH0ZZ Extirpation of Matter from Right Common Carotid Artery, Open Approach (ICD-10-PCS; principal; 2017-12-19 10:15)
PROC: 07B10ZX Excision of Right Neck Lymphatic, Open Approach, Diagnostic (ICD-10-PCS; principal; 2017-12-19 10:15)
DX: I65.21 Occlusion and stenosis of right carotid artery (principal); I69.354 Hemiplegia and hemiparesis following cerebral infarction affecting left non-dominant side; I10 Essential (primary) hypertension; R59.0 Localized enlarged lymph nodes; Z98.1 Arthrodesis status
CPT/HCPCS: C1768; J0690; J1644; J2250; J2704; J2720; J3010